=== PATIENT | female | born 1945 | race African-American/Black ===

== ENCOUNTER 2019-12-05 19:08 | Inpatient (IN) ==
[2019-12-05 20:55] LABS: Basophils # 0.1 10*3/uL (0.0-0.2); Basophils % 1.3 % (0.0-0.8); Eosinophils # 0.8 10*3/uL (0.0-0.87); Eosinophils % 8.5 % (0.00-10.9); Hematocrit 39.9 VOL% (35.7-47.0); Hemoglobin 13.1 GM/DL (12.0-16.0); Immature Granulocytes % 0.3 %; Immature Granulocytes Absolute 0.03 #; Lymphocytes % 42.8 % (21.3-54.2); Mean Corpuscular HGB Conc 32.8 GM/DL (32-36); Mean Corpuscular Volume 89.5 FL (87-102); Mean Platelet Volume 12.2 FL (9.6-12.0); Monocytes % 10.4 % (1.7-12.7); Neutrophils % 36.7 % (38.7-73.9); Platelet Count 218 T/CUMM (130-400); Red Blood Count 4.46 MC/CUMM (3.8-5.5); Red Cell Distribution Width 15.1 % (9.3-17.3); White Blood Count 9.4 T/CUMM (4-12)
[2019-12-05 21:03] LABS: Apearance,Urine CLEAR (Clear); Bacteria,Urine Occasional /HPF (Few); Bilirubin,Urine Negative (Negative); Blood, Urine Large mg/dL (Negative); Glucose,Urine (UA) Negative (Negative); Ketones,Urine Negative (Negative); Nitrite,Urine Negative (Negative); Protein,Urine Negative; RBC,Urine 11 /HPF (0-4); Squamous Epithelial Cell,Urine Occasional /HPF (0-10); Urine Color Straw (Yellow); Urine Specific Gravity 1.004 (1.001-1.035); Urine Urobilinogen < 2.0 EU/DL (0.2-1.0); WBC,Urine 7 /HPF (0-6)
[2019-12-05 21:07] LABS: Bilirubin,Total 0.4 MG/DL (0.2-1.0); Osmolality,Calculated 271.8 MOS/KG (273-304); Total Protein 7.9 G/DL (6.4-8.3)
[2019-12-05] MEDS ORDERED: POTASSIUM CHLORIDE 20 MEQ/15 ML UDCUP PO ONE (21:13)
[2019-12-05] MEDS ORDERED: cefTRIAXone 1,000 MG in SODIUM CHLORIDE 0.9% 100 ML IV STA (21:13)
[2019-12-05 21:45] LABS: Eosinophils 7 % (0-10); Lymphocytes 46 % (20-55); Segmented Neutrophils 37 % (50-85); Total Cells Counted 100
[2019-12-05 21:48] LABS: Anisocytosis Slight; Hypochromasia 2+; Platelet Estimate Normal
[2019-12-05 21:50] LABS: Polychromasia Few
[2019-12-05] MEDS ORDERED: cloNIDine 0.1 MG TABLET PO STA (22:56)
[2019-12-05] MEDS ORDERED: ONDANSETRON 4 MG/2 ML VIAL IV PRN (23:13)
[2019-12-05] MEDS ORDERED: amLODIPine 5 MG TABLET PO STA (23:13)
[2019-12-05] MEDS ORDERED: ACETAMINOPHEN 325 MG TABLET PO PRN (23:13)
[2019-12-05] MEDS ORDERED: ASPIRIN EC 325 MG TABLET PO STA (23:16)
[2019-12-06 04:29] LABS: Basophils # 0.1 10*3/uL (0.0-0.2); Basophils % 1.2 % (0.0-0.8); Eosinophils # 0.7 10*3/uL (0.0-0.87); Eosinophils % 9.1 % (0.00-10.9); Hematocrit 36.1 VOL% (35.7-47.0); Hemoglobin 11.9 GM/DL (12.0-16.0); Immature Granulocytes % 0.3 %; Immature Granulocytes Absolute 0.02 #; Lymphocytes # 3.2 10*3/uL (1.4-4.0); Lymphocytes % 41.9 % (21.3-54.2); Mean Corpuscular Volume 87.8 FL (87-102); Mean Platelet Volume 10.9 FL (9.6-12.0); Monocytes % 11.1 % (1.7-12.7); Neutrophils % 36.4 % (38.7-73.9); Platelet Count 221 T/CUMM (130-400); Red Blood Count 4.11 MC/CUMM (3.8-5.5); Red Cell Distribution Width 15.4 % (9.3-17.3); White Blood Count 7.7 T/CUMM (4-12)
[2019-12-06 05:03] LABS: Albumin 3.3 G/DL (3.4-5.0); Bilirubin,Total 0.7 MG/DL (0.2-1.0); Calcium 10.1 MG/DL (8.5-10.1); Osmolality,Calculated 279.3 MOS/KG (273-304); Total Protein 7.2 G/DL (6.4-8.3)
[2019-12-06 05:04] LABS: Atypical Lymphocytes Few; Eosinophils 9 % (0-10); Hypochromasia 1+; Lymphocytes 39 % (20-55); Segmented Neutrophils 41 % (50-85); Total Cells Counted 100
[2019-12-06 05:05] LABS: Microcytosis Slight; Platelet Estimate Normal
[2019-12-06] MEDS ORDERED: predniSONE 5 MG TABLET PO PRN (08:22)
[2019-12-06] MEDS ORDERED: ERGOCALCIFEROL 50,000 UNIT CAPSULE PO SCH (09:00)
[2019-12-06] MEDS ORDERED: LOSARTAN 50 MG TABLET PO SCH (09:00)
[2019-12-06] MEDS ORDERED: cloNIDine 0.1 MG TABLET PO SCH (09:00)
[2019-12-06] MEDS: GABAPENTIN 300 MG CAPSULE PO SCH ×2 (10:05→20:57)
[2019-12-06] MEDS: traMADol 50 MG TABLET PO SCH ×2 (10:05→20:57)
[2019-12-06] MEDS: hydroCHLOROthiazide 25 MG TABLET PO SCH (10:05)
[2019-12-06] MEDS: amLODIPine 5 MG TABLET PO SCH (10:06)
[2019-12-06] MEDS: CITALOPRAM 20 MG TABLET PO SCH (10:06)
[2019-12-06] MEDS: FOLIC ACID 1 MG TABLET PO SCH (10:06)
[2019-12-06] MEDS: LOSARTAN 50 MG TABLET PO SCH (10:06)
[2019-12-06] MEDS: ASPIRIN EC 325 MG TABLET PO SCH (16:56)
[2019-12-07 04:41] LABS: Basophils # 0.1 10*3/uL (0.0-0.2); Basophils % 1.3 % (0.0-0.8); Eosinophils # 0.8 10*3/uL (0.0-0.87); Eosinophils % 9.3 % (0.00-10.9); Hematocrit 34.8 VOL% (35.7-47.0); Hemoglobin 11.6 GM/DL (12.0-16.0); Immature Granulocytes % 0.2 %; Immature Granulocytes Absolute 0.02 #; Lymphocytes # 4.2 10*3/uL (1.4-4.0); Lymphocytes % 46.3 % (21.3-54.2); Mean Corpuscular HGB Conc 33.3 GM/DL (32-36); Mean Platelet Volume 11.1 FL (9.6-12.0); Monocytes % 8.7 % (1.7-12.7); Neutrophils % 34.2 % (38.7-73.9); Platelet Count 204 T/CUMM (130-400); Red Blood Count 3.91 MC/CUMM (3.8-5.5); Red Cell Distribution Width 15.5 % (9.3-17.3); White Blood Count 9.1 T/CUMM (4-12)
[2019-12-07 05:04] LABS: Calcium 9.6 MG/DL (8.5-10.1); Osmolality,Calculated 273.7 MOS/KG (273-304)
[2019-12-07 05:14] LABS: Atypical Lymphocytes Few; Band Neutrophils 1 % (0-10); Eosinophils 13 % (0-10); Hypochromasia 1+; Lymphocytes 46 % (20-55); Microcytosis Slight; Segmented Neutrophils 31 % (50-85); Total Cells Counted 100
[2019-12-07 05:15] LABS: Platelet Estimate Normal
[2019-12-07] MEDS: GABAPENTIN 300 MG CAPSULE PO SCH ×2 (08:38→20:37)
[2019-12-07] MEDS: CITALOPRAM 20 MG TABLET PO SCH (08:38)
[2019-12-07] MEDS: LOSARTAN 50 MG TABLET PO SCH (08:38)
[2019-12-07] MEDS: amLODIPine 5 MG TABLET PO SCH (08:39)
[2019-12-07] MEDS: traMADol 50 MG TABLET PO SCH ×2 (08:39→20:37)
[2019-12-07] MEDS: ASPIRIN EC 325 MG TABLET PO SCH (08:39)
[2019-12-07] MEDS: FOLIC ACID 1 MG TABLET PO SCH (08:39)
[2019-12-07] MEDS: hydroCHLOROthiazide 25 MG TABLET PO SCH (08:40)
[2019-12-08 07:33] VITALS: BP 129/89
[2019-12-08 07:52] LABS: Risk Ratio 3.32; VLDL CHOLESTEROL 28.2 MG/DL
[2019-12-08] MEDS: amLODIPine 5 MG TABLET PO SCH (08:25)
[2019-12-08] MEDS: hydroCHLOROthiazide 25 MG TABLET PO SCH (08:25)
[2019-12-08] MEDS: FOLIC ACID 1 MG TABLET PO SCH (08:25)
[2019-12-08] MEDS: LOSARTAN 50 MG TABLET PO SCH (08:25)
[2019-12-08] MEDS: CITALOPRAM 20 MG TABLET PO SCH (08:26)
[2019-12-08] MEDS: GABAPENTIN 300 MG CAPSULE PO SCH (08:26)
[2019-12-08] MEDS: ASPIRIN EC 325 MG TABLET PO SCH (08:26)
[2019-12-08] MEDS: traMADol 50 MG TABLET PO SCH (08:26)
[2019-12-11] MEDS ORDERED: METHOTREXATE 2.5 MG TABLET PO SCH (09:00)
== END 2019-12-08 09:49 | disposition home health service (06) | DRG 65 ==
LOC: N.EDINP 19:08 → N.ED 19:08 → N.TELES 23:33
PROVIDERS: ADMIT Internal Medicine; ATTEND Internal Medicine

== ENCOUNTER 2020-07-19 13:35 | Inpatient (IN) ==
[2020-07-19] MEDS ORDERED: SODIUM CHLORIDE 0.9% 1,000 ML IV STA (14:04)
[2020-07-19] MEDS ORDERED: ACETAMINOPHEN 500 MG TABLET PO STA (14:04)
[2020-07-19 14:56] LABS: Basophils # 0.1 10*3/uL (0.0-0.2); Basophils % 0.4 % (0.0-0.8); Hematocrit 36.5 VOL% (35.7-47.0); Hemoglobin 12.4 GM/DL (12.0-16.0); Immature Granulocytes Absolute 0.24 #; Lymphocytes # 0.9 10*3/uL (1.4-4.0); Lymphocytes % 7.7 % (21.3-54.2); Mean Platelet Volume 9.4 FL (9.6-12.0); Neutrophils % 83.9 % (38.7-73.9); Platelet Count 179 T/CUMM (130-400); Red Blood Count 4.15 MC/CUMM (3.8-5.5); Red Cell Distribution Width 17.2 % (9.3-17.3); White Blood Count 11.7 T/CUMM (4-12)
[2020-07-19 15:06] LABS: INR 1.1; PT Patient Result 11.9 SECS (9.8-11.9)
[2020-07-19 15:29] LABS: Lymphocytes 3 % (20-55); Segmented Neutrophils 91 % (50-85); Total Cells Counted 100
[2020-07-19 15:30] LABS: Anisocytosis 1+; Hypochromasia Slight; Platelet Estimate Adequate; Polychromasia Few
[2020-07-19 15:31] LABS: Alanine Aminotransferase 28 U/L (13-56); Albumin 3.5 G/DL (3.4-5.0); Alkaline Phosphatase 66 U/L (45-117); Aspartate Amino Transferase 37 U/L (0-37); Blood Urea Nitrogen 11 MG/DL (7-18); Calcium 9.5 MG/DL (8.5-10.1); Carbon Dioxide 30 MMOL/L (21-32); Estimated Glom Filtration Rate 70 ML/MIN; Glucose 97 MG/DL (74-106); Osmolality,Calculated 264.4 MOS/KG (273-304); Potassium 3.3 MMOL/L (3.5-5.1); Sodium 133 MMOL/L (136-145); Total Protein 8.2 G/DL (6.4-8.3)
[2020-07-19 15:34] LABS: Amorphous Crystals,Urine Occasional /HPF (Few); Bilirubin,Urine Negative (Negative); Blood, Urine Large mg/dL (Negative); Glucose,Urine (UA) Negative (Negative); Ketones,Urine Negative (Negative); Nitrite,Urine Negative (Negative); Protein,Urine 100 MG/DL; RBC,Urine 150 /HPF (0-4); Squamous Epithelial Cell,Urine Occasional /HPF (0-10); Urine Appearance CLEAR (Clear); Urine Color Yellow (Yellow); Urine Specific Gravity 1.012 (1.001-1.035)
[2020-07-19] MEDS ORDERED: cefTRIAXone 1,000 MG in SODIUM CHLORIDE 0.9% 100 ML IV STA (15:57)
[2020-07-19] MEDS ORDERED: ENOXAPARIN 120 MG/0.8 ML SYRINGE SUBCUT STA (16:10)
[2020-07-19] MEDS ORDERED: PIPERACILLIN/TAZOBACTAM 3,375 MG in SODIUM CHLORIDE 0.9% 100 ML IV SCH (16:30)
[2020-07-19] MEDS ORDERED: POTASSIUM CHLORIDE 20 MEQ TABLET PO ONE (20:14)
[2020-07-19] MEDS ORDERED: FUROSEMIDE 40 MG/4 ML VIAL IV ONE (20:21)
[2020-07-19] MEDS ORDERED: LORATADINE 10 MG TABLET PO PRN (20:24)
[2020-07-19] MEDS ORDERED: DOCUSATE SODIUM 100 MG CAPSULE PO PRN (20:24)
[2020-07-19] MEDS ORDERED: methylPREDNISolone SOD SUC 40 MG/1 ML VIAL IV SCH (21:00)
[2020-07-19] MEDS ORDERED: KETOROLAC 30 MG/1 ML VIAL IV SCH (21:00)
[2020-07-19] MEDS: MEROPENEM 500 MG in SODIUM CHLORIDE 0.9% 100 ML IV SCH (21:25)
[2020-07-19] MEDS: methylPREDNISolone SOD SUC 40 MG/1 ML VIAL IV SCH (21:27)
[2020-07-19] MEDS: ACETAMINOPHEN 500 MG TABLET PO SCH (21:30)
[2020-07-19] MEDS: SODIUM CHLORIDE 0.9% 1,000 ML IV SCH (21:31)
[2020-07-20] MEDS: VANCOMYCIN INJ 1,500 MG in SODIUM CHLORIDE 0.9% 500 ML IV SCH (00:38)
[2020-07-20] MEDS: ALBUTEROL/IPRATROPIUM 3 ML NEB RESP TX SCH ×4 (00:54→19:50)
[2020-07-20] MEDS: MEROPENEM 500 MG in SODIUM CHLORIDE 0.9% 100 ML IV SCH ×4 (03:51→21:55)
[2020-07-20] MEDS: ACETAMINOPHEN 500 MG TABLET PO SCH ×3 (05:22→21:57)
[2020-07-20] MEDS: methylPREDNISolone SOD SUC 40 MG/1 ML VIAL IV SCH ×3 (05:22→21:52)
[2020-07-20 05:52] LABS: Basophils % 0.1 % (0.0-0.8); Hematocrit 35.3 VOL% (35.7-47.0); Immature Granulocytes % 0.6 %; Immature Granulocytes Absolute 0.07 #; Lymphocytes # 0.4 10*3/uL (1.4-4.0); Lymphocytes % 3.8 % (21.3-54.2); Mean Corpuscular Volume 87.6 FL (87-102); Mean Platelet Volume 9.3 FL (9.6-12.0); Monocytes % 3.6 % (1.7-12.7); Neutrophils % 91.9 % (38.7-73.9); Platelet Count 177 T/CUMM (130-400); Red Blood Count 4.03 MC/CUMM (3.8-5.5); Red Cell Distribution Width 16.9 % (9.3-17.3); White Blood Count 11.3 T/CUMM (4-12)
[2020-07-20 06:13] LABS: Hypochromasia 1+; Lymphocytes 8 % (20-55); Microcytosis 1+; Platelet Estimate Adequate; Segmented Neutrophils 91 % (50-85); Total Cells Counted 100
[2020-07-20 06:20] LABS: Potassium 3.4 MMOL/L (3.5-5.1)
[2020-07-20] MEDS ORDERED: POTASSIUM CHLORIDE 20 MEQ TABLET PO SCH (09:00)
[2020-07-20] MEDS ORDERED: ENOXAPARIN 100 MG/ML SYRINGE SUBCUT SCH (09:00)
[2020-07-20] MEDS: LORATADINE 10 MG TABLET PO SCH (09:22)
[2020-07-20] MEDS: FUROSEMIDE 40 MG/4 ML VIAL IV SCH (09:23)
[2020-07-20] MEDS: SODIUM CHLORIDE 0.9% 1,000 ML IV SCH ×3 (09:24→19:50)
[2020-07-20] MEDS: ASPIRIN EC 81 MG TABLET PO SCH (14:52)
[2020-07-20] MEDS: traMADol 50 MG TABLET PO PRN (14:53)
[2020-07-20] MEDS: SIMVASTATIN 10 MG TABLET PO SCH (17:18)
[2020-07-20] MEDS: CITALOPRAM 20 MG TABLET PO SCH (17:18)
[2020-07-20] MEDS: RIVAROXABAN 15 MG TABLET PO SCH (18:53)
[2020-07-20] MEDS: GABAPENTIN 300 MG CAPSULE PO SCH (21:57)
[2020-07-20] MEDS: POTASSIUM CHLORIDE 20 MEQ TABLET PO SCH (21:59)
[2020-07-21] MEDS: VANCOMYCIN INJ 1,500 MG in SODIUM CHLORIDE 0.9% 500 ML IV SCH (00:41)
[2020-07-21] MEDS: ACETAMINOPHEN 500 MG TABLET PO SCH ×4 (00:43→18:08)
[2020-07-21] MEDS: ALBUTEROL/IPRATROPIUM 3 ML NEB RESP TX SCH ×4 (01:38→19:45)
[2020-07-21] MEDS: MEROPENEM 500 MG in SODIUM CHLORIDE 0.9% 100 ML IV SCH ×4 (03:44→21:07)
[2020-07-21] MEDS: methylPREDNISolone SOD SUC 40 MG/1 ML VIAL IV SCH ×3 (05:15→21:05)
[2020-07-21 05:29] LABS: Basophils % 0.3 % (0.0-0.8); Hematocrit 34.6 VOL% (35.7-47.0); Hemoglobin 11.6 GM/DL (12.0-16.0); Immature Granulocytes % 1.1 %; Immature Granulocytes Absolute 0.12 #; Lymphocytes # 0.4 10*3/uL (1.4-4.0); Lymphocytes % 3.5 % (21.3-54.2); Mean Corpuscular HGB Conc 33.5 GM/DL (32-36); Mean Corpuscular Volume 86.9 FL (87-102); Mean Platelet Volume 9.8 FL (9.6-12.0); Monocytes % 4.3 % (1.7-12.7); Neutrophils % 90.8 % (38.7-73.9); Platelet Count 181 T/CUMM (130-400); Red Blood Count 3.98 MC/CUMM (3.8-5.5); Red Cell Distribution Width 16.5 % (9.3-17.3); White Blood Count 10.8 T/CUMM (4-12)
[2020-07-21 05:41] LABS: Calcium 8.3 MG/DL (8.5-10.1); Osmolality,Calculated 275.7 MOS/KG (273-304); Potassium 3.3 MMOL/L (3.5-5.1)
[2020-07-21 05:46] LABS: Risk Ratio 3.05
[2020-07-21 06:22] LABS: Band Neutrophils 4 % (0-10); Hypochromasia 1+; Lymphocytes 4 % (20-55); Segmented Neutrophils 90 % (50-85); Total Cells Counted 100
[2020-07-21 06:23] LABS: Microcytosis 1+; Platelet Estimate Adequate
[2020-07-21] MEDS: CITALOPRAM 20 MG TABLET PO SCH (09:24)
[2020-07-21] MEDS: GABAPENTIN 300 MG CAPSULE PO SCH ×2 (09:24→21:08)
[2020-07-21] MEDS: traMADol 50 MG TABLET PO PRN (09:25)
[2020-07-21] MEDS: RIVAROXABAN 15 MG TABLET PO SCH ×2 (09:25→16:22)
[2020-07-21] MEDS: POTASSIUM CHLORIDE 20 MEQ TABLET PO SCH ×2 (09:25→21:07)
[2020-07-21] MEDS: LORATADINE 10 MG TABLET PO SCH (09:25)
[2020-07-21] MEDS: ASPIRIN EC 81 MG TABLET PO SCH (09:25)
[2020-07-21] MEDS: FUROSEMIDE 40 MG/4 ML VIAL IV SCH (09:26)
[2020-07-21] MEDS: SODIUM CHLORIDE 0.9% 1,000 ML IV SCH (09:26)
[2020-07-21] MEDS ORDERED: IBUPROFEN 400 MG TABLET PO ONE (15:43)
[2020-07-21] MEDS: SIMVASTATIN 10 MG TABLET PO SCH (16:22)
[2020-07-22] MEDS: SODIUM CHLORIDE 0.9% 1,000 ML IV SCH ×3 (00:47→21:35)
[2020-07-22] MEDS: VANCOMYCIN INJ 1,500 MG in SODIUM CHLORIDE 0.9% 500 ML IV SCH ×3 (00:50→12:48)
[2020-07-22] MEDS: ACETAMINOPHEN 500 MG TABLET PO SCH ×4 (00:51→17:51)
[2020-07-22] MEDS: ALBUTEROL/IPRATROPIUM 3 ML NEB RESP TX SCH ×4 (01:11→20:00)
[2020-07-22] MEDS: MEROPENEM 500 MG in SODIUM CHLORIDE 0.9% 100 ML IV SCH ×4 (03:45→21:31)
[2020-07-22] MEDS: traMADol 50 MG TABLET PO PRN (03:47)
[2020-07-22 03:55] LABS: Basophils % 0.2 % (0.0-0.8); Hematocrit 32.1 VOL% (35.7-47.0); Immature Granulocytes % 1.8 %; Lymphocytes # 0.5 10*3/uL (1.4-4.0); Lymphocytes % 4.1 % (21.3-54.2); Mean Corpuscular HGB Conc 34.3 GM/DL (32-36); Mean Corpuscular Volume 86.5 FL (87-102); Mean Platelet Volume 10.5 FL (9.6-12.0); Monocytes % 5.2 % (1.7-12.7); Neutrophils % 88.7 % (38.7-73.9); Platelet Count 194 T/CUMM (130-400); Red Blood Count 3.71 MC/CUMM (3.8-5.5); Red Cell Distribution Width 16.9 % (9.3-17.3); White Blood Count 11.1 T/CUMM (4-12)
[2020-07-22 04:22] LABS: Calcium 8.1 MG/DL (8.5-10.1); Osmolality,Calculated 277.8 MOS/KG (273-304); Potassium 3.2 MMOL/L (3.5-5.1)
[2020-07-22 04:25] LABS: Band Neutrophils 1 % (0-10); Lymphocytes 4 % (20-55); Platelet Estimate Normal; Segmented Neutrophils 90 % (50-85); Total Cells Counted 100
[2020-07-22] MEDS: methylPREDNISolone SOD SUC 40 MG/1 ML VIAL IV SCH ×3 (04:38→21:29)
[2020-07-22] MEDS: ASPIRIN EC 81 MG TABLET PO SCH (08:53)
[2020-07-22] MEDS: POTASSIUM CHLORIDE 20 MEQ TABLET PO SCH ×2 (08:53→21:33)
[2020-07-22] MEDS: RIVAROXABAN 15 MG TABLET PO SCH ×2 (08:53→17:22)
[2020-07-22] MEDS: LORATADINE 10 MG TABLET PO SCH (08:54)
[2020-07-22] MEDS: CITALOPRAM 20 MG TABLET PO SCH (08:54)
[2020-07-22] MEDS: GABAPENTIN 300 MG CAPSULE PO SCH ×2 (08:54→21:33)
[2020-07-22] MEDS: FUROSEMIDE 40 MG/4 ML VIAL IV SCH (08:54)
[2020-07-22] MEDS ORDERED: POTASSIUM CHLORIDE 20 MEQ TABLET PO ONE (11:13)
[2020-07-22] MEDS: SIMVASTATIN 10 MG TABLET PO SCH (17:22)
[2020-07-23] MEDS: VANCOMYCIN INJ 1,500 MG in SODIUM CHLORIDE 0.9% 500 ML IV SCH ×2 (00:44→11:55)
[2020-07-23] MEDS: ACETAMINOPHEN 500 MG TABLET PO SCH ×4 (00:46→17:44)
[2020-07-23] MEDS: ALBUTEROL/IPRATROPIUM 3 ML NEB RESP TX SCH ×4 (00:56→20:05)
[2020-07-23] MEDS: MEROPENEM 500 MG in SODIUM CHLORIDE 0.9% 100 ML IV SCH ×4 (03:55→21:55)
[2020-07-23] MEDS: methylPREDNISolone SOD SUC 40 MG/1 ML VIAL IV SCH ×3 (05:46→21:56)
[2020-07-23] MEDS: SODIUM CHLORIDE 0.9% 1,000 ML IV SCH ×3 (07:11→15:43)
[2020-07-23] MEDS: ASPIRIN EC 81 MG TABLET PO SCH (08:47)
[2020-07-23] MEDS: LORATADINE 10 MG TABLET PO SCH (08:47)
[2020-07-23] MEDS: amLODIPine 5 MG TABLET PO SCH (08:47)
[2020-07-23] MEDS: GABAPENTIN 300 MG CAPSULE PO SCH ×2 (08:47→21:56)
[2020-07-23] MEDS: CITALOPRAM 20 MG TABLET PO SCH (08:47)
[2020-07-23] MEDS: POTASSIUM CHLORIDE 20 MEQ TABLET PO SCH ×2 (08:47→21:55)
[2020-07-23] MEDS: RIVAROXABAN 15 MG TABLET PO SCH ×2 (08:47→16:28)
[2020-07-23] MEDS: FUROSEMIDE 40 MG/4 ML VIAL IV SCH (08:48)
[2020-07-23] MEDS: SIMVASTATIN 10 MG TABLET PO SCH (16:28)
[2020-07-24] MEDS: VANCOMYCIN INJ 1,500 MG in SODIUM CHLORIDE 0.9% 500 ML IV SCH ×3 (00:23→23:55)
[2020-07-24] MEDS: ACETAMINOPHEN 500 MG TABLET PO SCH ×5 (00:23→23:54)
[2020-07-24] MEDS: ALBUTEROL/IPRATROPIUM 3 ML NEB RESP TX SCH ×4 (02:06→19:25)
[2020-07-24] MEDS: MEROPENEM 500 MG in SODIUM CHLORIDE 0.9% 100 ML IV SCH ×4 (03:28→21:34)
[2020-07-24] MEDS: SODIUM CHLORIDE 0.9% 1,000 ML IV SCH ×2 (03:31→16:35)
[2020-07-24] MEDS: methylPREDNISolone SOD SUC 40 MG/1 ML VIAL IV SCH ×3 (06:33→21:39)
[2020-07-24] MEDS: LORATADINE 10 MG TABLET PO SCH (08:58)
[2020-07-24] MEDS: POTASSIUM CHLORIDE 20 MEQ TABLET PO SCH ×2 (08:59→21:34)
[2020-07-24] MEDS: amLODIPine 5 MG TABLET PO SCH (08:59)
[2020-07-24] MEDS: CITALOPRAM 20 MG TABLET PO SCH (08:59)
[2020-07-24] MEDS: GABAPENTIN 300 MG CAPSULE PO SCH ×2 (08:59→21:34)
[2020-07-24] MEDS: FUROSEMIDE 40 MG/4 ML VIAL IV SCH (08:59)
[2020-07-24] MEDS: ASPIRIN EC 81 MG TABLET PO SCH (08:59)
[2020-07-24] MEDS: RIVAROXABAN 15 MG TABLET PO SCH ×2 (08:59→16:27)
[2020-07-24] MEDS: SIMVASTATIN 10 MG TABLET PO SCH (16:27)
[2020-07-25] MEDS: ALBUTEROL/IPRATROPIUM 3 ML NEB RESP TX SCH ×4 (00:04→20:20)
[2020-07-25] MEDS: MEROPENEM 500 MG in SODIUM CHLORIDE 0.9% 100 ML IV SCH ×4 (02:44→20:57)
[2020-07-25] MEDS: methylPREDNISolone SOD SUC 40 MG/1 ML VIAL IV SCH ×3 (05:13→20:50)
[2020-07-25] MEDS: ACETAMINOPHEN 500 MG TABLET PO SCH ×3 (05:40→17:57)
[2020-07-25 07:07] LABS: Basophils % 0.2 % (0.0-0.8); Eosinophils % 0.1 % (0.00-10.9); Hematocrit 34.6 VOL% (35.7-47.0); Hemoglobin 11.9 GM/DL (12.0-16.0); Immature Granulocytes % 12.5 %; Immature Granulocytes Absolute 2.16 #; Lymphocytes # 2.7 10*3/uL (1.4-4.0); Lymphocytes % 15.5 % (21.3-54.2); Mean Corpuscular HGB Conc 34.4 GM/DL (32-36); Mean Corpuscular Volume 85.9 FL (87-102); Mean Platelet Volume 11.5 FL (9.6-12.0); Monocytes % 11.1 % (1.7-12.7); NRBC # 0.32 10*3/uL; Neutrophils % 60.6 % (38.7-73.9); Platelet Count 355 T/CUMM (130-400); Red Blood Count 4.03 MC/CUMM (3.8-5.5); Red Cell Distribution Width 17.6 % (9.3-17.3); White Blood Count 17.3 T/CUMM (4-12)
[2020-07-25 07:21] LABS: Calcium 8.8 MG/DL (8.5-10.1); Hypochromasia 1+; Microcytosis 1+; Ovalocytes Slight; Platelet Estimate Adequate; Potassium 4.6 MMOL/L (3.5-5.1)
[2020-07-25] MEDS: FUROSEMIDE 40 MG/4 ML VIAL IV SCH (08:53)
[2020-07-25] MEDS: GABAPENTIN 300 MG CAPSULE PO SCH ×2 (08:57→20:51)
[2020-07-25] MEDS: amLODIPine 5 MG TABLET PO SCH (08:57)
[2020-07-25] MEDS: POTASSIUM CHLORIDE 20 MEQ TABLET PO SCH ×2 (08:58→20:51)
[2020-07-25] MEDS: ASPIRIN EC 81 MG TABLET PO SCH (08:58)
[2020-07-25] MEDS: LORATADINE 10 MG TABLET PO SCH (09:00)
[2020-07-25] MEDS: CITALOPRAM 20 MG TABLET PO SCH (09:06)
[2020-07-25] MEDS: RIVAROXABAN 15 MG TABLET PO SCH ×2 (09:06→17:10)
[2020-07-25] MEDS: traMADol 50 MG TABLET PO PRN (11:31)
[2020-07-25] MEDS: VANCOMYCIN INJ 1,500 MG in SODIUM CHLORIDE 0.9% 500 ML IV SCH (11:33)
[2020-07-25] MEDS: SIMVASTATIN 10 MG TABLET PO SCH (17:10)
[2020-07-26] MEDS: VANCOMYCIN INJ 1,500 MG in SODIUM CHLORIDE 0.9% 500 ML IV SCH ×2 (00:01→12:59)
[2020-07-26] MEDS: ALBUTEROL/IPRATROPIUM 3 ML NEB RESP TX SCH ×4 (01:31→19:44)
[2020-07-26] MEDS: MEROPENEM 500 MG in SODIUM CHLORIDE 0.9% 100 ML IV SCH ×4 (03:03→20:46)
[2020-07-26] MEDS: methylPREDNISolone SOD SUC 40 MG/1 ML VIAL IV SCH (04:35)
[2020-07-26] MEDS: ACETAMINOPHEN 500 MG TABLET PO SCH ×4 (06:01→17:46)
[2020-07-26] MEDS: CITALOPRAM 20 MG TABLET PO SCH (08:50)
[2020-07-26] MEDS: POTASSIUM CHLORIDE 20 MEQ TABLET PO SCH ×2 (08:50→20:46)
[2020-07-26] MEDS: ASPIRIN EC 81 MG TABLET PO SCH (08:50)
[2020-07-26] MEDS: GABAPENTIN 300 MG CAPSULE PO SCH ×2 (08:50→20:45)
[2020-07-26] MEDS: RIVAROXABAN 15 MG TABLET PO SCH ×2 (08:56→17:43)
[2020-07-26] MEDS: amLODIPine 5 MG TABLET PO SCH (08:56)
[2020-07-26] MEDS: LORATADINE 10 MG TABLET PO SCH (09:14)
[2020-07-26] MEDS: FUROSEMIDE 40 MG TABLET PO SCH (09:14)
[2020-07-26 09:45] LABS: Vitamin B12 435 PG/ML (211-911)
[2020-07-26] MEDS: SIMVASTATIN 10 MG TABLET PO SCH (17:43)
[2020-07-27] MEDS: ACETAMINOPHEN 500 MG TABLET PO SCH ×4 (00:13→17:48)
[2020-07-27] MEDS: VANCOMYCIN INJ 1,500 MG in SODIUM CHLORIDE 0.9% 500 ML IV SCH ×2 (00:14→12:21)
[2020-07-27] MEDS: ALBUTEROL/IPRATROPIUM 3 ML NEB RESP TX SCH ×4 (02:04→19:54)
[2020-07-27] MEDS: MEROPENEM 500 MG in SODIUM CHLORIDE 0.9% 100 ML IV SCH ×4 (02:41→20:45)
[2020-07-27] MEDS: FUROSEMIDE 40 MG TABLET PO SCH (09:23)
[2020-07-27] MEDS: RIVAROXABAN 15 MG TABLET PO SCH ×2 (09:24→17:49)
[2020-07-27] MEDS: amLODIPine 5 MG TABLET PO SCH (09:24)
[2020-07-27] MEDS: LORATADINE 10 MG TABLET PO SCH (09:24)
[2020-07-27] MEDS: CITALOPRAM 20 MG TABLET PO SCH (09:24)
[2020-07-27] MEDS: POTASSIUM CHLORIDE 20 MEQ TABLET PO SCH ×2 (09:24→20:45)
[2020-07-27] MEDS: ASPIRIN EC 81 MG TABLET PO SCH (09:24)
[2020-07-27] MEDS: GABAPENTIN 300 MG CAPSULE PO SCH ×2 (09:32→20:44)
[2020-07-27] MEDS: SIMVASTATIN 10 MG TABLET PO SCH (17:49)
[2020-07-28] MEDS: VANCOMYCIN INJ 1,500 MG in SODIUM CHLORIDE 0.9% 500 ML IV SCH ×2 (00:30→11:56)
[2020-07-28] MEDS: ALBUTEROL/IPRATROPIUM 3 ML NEB RESP TX SCH ×4 (01:05→19:43)
[2020-07-28] MEDS: ACETAMINOPHEN 500 MG TABLET PO SCH ×4 (02:38→17:29)
[2020-07-28] MEDS: SODIUM CHLORIDE 0.9% 1,000 ML IV SCH (02:42)
[2020-07-28] MEDS: MEROPENEM 500 MG in SODIUM CHLORIDE 0.9% 100 ML IV SCH ×4 (03:15→21:16)
[2020-07-28] MEDS: CITALOPRAM 20 MG TABLET PO SCH (08:31)
[2020-07-28] MEDS: GABAPENTIN 300 MG CAPSULE PO SCH ×2 (08:31→21:16)
[2020-07-28] MEDS: amLODIPine 5 MG TABLET PO SCH (08:31)
[2020-07-28] MEDS: FUROSEMIDE 40 MG TABLET PO SCH (08:32)
[2020-07-28] MEDS: RIVAROXABAN 15 MG TABLET PO SCH ×2 (08:32→17:07)
[2020-07-28] MEDS: LORATADINE 10 MG TABLET PO SCH (08:32)
[2020-07-28] MEDS: POTASSIUM CHLORIDE 20 MEQ TABLET PO SCH ×2 (08:32→21:16)
[2020-07-28] MEDS: ASPIRIN EC 81 MG TABLET PO SCH (08:32)
[2020-07-28] MEDS: SIMVASTATIN 10 MG TABLET PO SCH (17:07)
[2020-07-29] MEDS: ACETAMINOPHEN 500 MG TABLET PO SCH ×4 (00:26→18:05)
[2020-07-29] MEDS: ALBUTEROL/IPRATROPIUM 3 ML NEB RESP TX SCH ×4 (01:03→19:32)
[2020-07-29] MEDS: MEROPENEM 500 MG in SODIUM CHLORIDE 0.9% 100 ML IV SCH ×4 (03:35→21:07)
[2020-07-29 05:27] LABS: Calcium 8.5 MG/DL (8.5-10.1); Osmolality,Calculated 279.3 MOS/KG (273-304)
[2020-07-29 07:41] LABS: Basophils # 0.1 10*3/uL (0.0-0.2); Basophils % 0.6 % (0.0-0.8); Eosinophils # 0.5 10*3/uL (0.0-0.87); Eosinophils % 3.8 % (0.00-10.9); Immature Granulocytes % 10.2 %; Immature Granulocytes Absolute 1.22 #; Lymphocytes % 24.8 % (21.3-54.2); Mean Corpuscular HGB Conc 33.3 GM/DL (32-36); Mean Corpuscular Volume 88.2 FL (87-102); Mean Platelet Volume 10.4 FL (9.6-12.0); Monocytes % 12.4 % (1.7-12.7); Neutrophils % 48.2 % (38.7-73.9); Platelet Count 371 T/CUMM (130-400); Red Blood Count 3.74 MC/CUMM (3.8-5.5); Red Cell Distribution Width 19.1 % (9.3-17.3)
[2020-07-29] MEDS: CITALOPRAM 20 MG TABLET PO SCH (08:31)
[2020-07-29] MEDS: LORATADINE 10 MG TABLET PO SCH (08:31)
[2020-07-29] MEDS: FUROSEMIDE 40 MG TABLET PO SCH (08:31)
[2020-07-29] MEDS: POTASSIUM CHLORIDE 20 MEQ TABLET PO SCH ×2 (08:31→21:07)
[2020-07-29] MEDS: ASPIRIN EC 81 MG TABLET PO SCH (08:31)
[2020-07-29] MEDS: GABAPENTIN 300 MG CAPSULE PO SCH ×2 (08:31→21:07)
[2020-07-29] MEDS: RIVAROXABAN 15 MG TABLET PO SCH ×2 (08:31→16:46)
[2020-07-29] MEDS: amLODIPine 5 MG TABLET PO SCH (08:31)
[2020-07-29 11:09] LABS: Band Neutrophils 2 % (0-10); Eosinophils 3 % (0-10); Lymphocytes 22 % (20-55); Nucleated Red Blood Cells 2 (0-5); Segmented Neutrophils 70 % (50-85); Total Cells Counted 100
[2020-07-29 11:10] LABS: Platelet Estimate Normal; Polychromasia Slight
[2020-07-29] MEDS: VANCOMYCIN INJ 1,500 MG in SODIUM CHLORIDE 0.9% 500 ML IV SCH (12:53)
[2020-07-29] MEDS: SIMVASTATIN 10 MG TABLET PO SCH (16:46)
[2020-07-30] MEDS: ACETAMINOPHEN 500 MG TABLET PO SCH ×3 (00:19→14:18)
[2020-07-30] MEDS: ALBUTEROL/IPRATROPIUM 3 ML NEB RESP TX SCH ×2 (01:20→07:40)
[2020-07-30] MEDS: MEROPENEM 500 MG in SODIUM CHLORIDE 0.9% 100 ML IV SCH ×2 (03:05→08:56)
[2020-07-30 05:55] LABS: Basophils # 0.1 10*3/uL (0.0-0.2); Basophils % 0.6 % (0.0-0.8); Eosinophils # 0.4 10*3/uL (0.0-0.87); Eosinophils % 3.4 % (0.00-10.9); Hematocrit 31.9 VOL% (35.7-47.0); Hemoglobin 10.4 GM/DL (12.0-16.0); Immature Granulocytes % 6.1 %; Immature Granulocytes Absolute 0.68 #; Lymphocytes % 26.5 % (21.3-54.2); Mean Corpuscular HGB Conc 32.6 GM/DL (32-36); Mean Corpuscular Volume 89.9 FL (87-102); Mean Platelet Volume 10.7 FL (9.6-12.0); Monocytes % 13.1 % (1.7-12.7); NRBC # 0.04 10*3/uL; Neutrophils % 50.3 % (38.7-73.9); Platelet Count 345 T/CUMM (130-400); Red Blood Count 3.55 MC/CUMM (3.8-5.5); Red Cell Distribution Width 18.7 % (9.3-17.3); White Blood Count 11.2 T/CUMM (4-12)
[2020-07-30 06:17] LABS: Eosinophils 2 % (0-10); Hypochromasia 1+; Lymphocytes 29 % (20-55); Microcytosis 1+; Platelet Estimate Adequate; Segmented Neutrophils 55 % (50-85); Total Cells Counted 100
[2020-07-30 06:32] LABS: Osmolality,Calculated 277.3 MOS/KG (273-304); Potassium 4.2 MMOL/L (3.5-5.1)
[2020-07-30] MEDS: FUROSEMIDE 40 MG TABLET PO SCH (08:57)
[2020-07-30] MEDS: POTASSIUM CHLORIDE 20 MEQ TABLET PO SCH (08:57)
[2020-07-30] MEDS: RIVAROXABAN 15 MG TABLET PO SCH (08:57)
[2020-07-30] MEDS: LORATADINE 10 MG TABLET PO SCH (08:58)
[2020-07-30] MEDS: CITALOPRAM 20 MG TABLET PO SCH (08:58)
[2020-07-30] MEDS: ASPIRIN EC 81 MG TABLET PO SCH (08:58)
[2020-07-30] MEDS: amLODIPine 5 MG TABLET PO SCH (08:58)
[2020-07-30] MEDS: GABAPENTIN 300 MG CAPSULE PO SCH (08:58)
[2020-07-30 11:42] VITALS: BP 130/91
[2020-07-30] MEDS: VANCOMYCIN INJ 1,500 MG in SODIUM CHLORIDE 0.9% 500 ML IV SCH (12:00)
== END 2020-07-30 15:14 | disposition swing bed (61) | DRG 175 ==
LOC: N.ED 13:35 → N.EDINP 16:23 → N.5E 18:05
PROVIDERS: ADMIT Internal Medicine; ATTEND Internal Medicine

== ENCOUNTER 2021-08-27 10:51 | Inpatient (IN) ==
[2021-08-27] MEDS ORDERED: ACETAMINOPHEN 325 MG TABLET PO PRN (10:54)
[2021-08-27] MEDS ORDERED: ONDANSETRON 4 MG/2 ML VIAL IV PRN (10:54)
[2021-08-27] MEDS ORDERED: ENOXAPARIN 40 MG/0.4 ML SYRINGE SUBCUT SCH (14:00)
[2021-08-27] MEDS ORDERED: traMADol 50 MG TABLET PO PRN (16:51)
[2021-08-27] MEDS ORDERED: DOCUSATE SODIUM 100 MG CAPSULE PO PRN (16:55)
[2021-08-27] MEDS: SIMVASTATIN 10 MG TABLET PO SCH (17:34)
[2021-08-27] MEDS: PIPERACILLIN/TAZOBACTAM 3,375 MG in SODIUM CHLORIDE 0.9% 100 ML IV SCH (17:36)
[2021-08-27] MEDS: SODIUM CHLORIDE 0.9% 1,000 ML IV SCH (17:40)
[2021-08-27] MEDS: LATANOPROST 0.005% OPH SOLN 2.5 ML BOTTLE BOTH EYES SCH (20:55)
[2021-08-27] MEDS: DOCUSATE SODIUM 100 MG CAPSULE PO SCH (20:56)
[2021-08-27] MEDS: GABAPENTIN 100 MG CAPSULE PO SCH (20:56)
[2021-08-27] MEDS: POTASSIUM CHLORIDE 20 MEQ TABLET PO SCH (20:56)
[2021-08-27] MEDS: predniSONE 5 MG TABLET PO SCH (20:56)
[2021-08-28] MEDS: PIPERACILLIN/TAZOBACTAM 3,375 MG in SODIUM CHLORIDE 0.9% 100 ML IV SCH ×4 (00:40→23:45)
[2021-08-28 06:05] LABS: Basophils # 0.1 10*3/uL (0.0-0.2); Basophils % 0.4 % (0.0-0.8); Eosinophils # 0.1 10*3/uL (0.0-0.87); Eosinophils % 0.5 % (0.00-10.9); Hematocrit 31.1 VOL% (35.7-47.0); Hemoglobin 10.3 GM/DL (12.0-16.0); Immature Granulocytes Absolute 0.12 #; Lymphocytes # 1.3 10*3/uL (1.4-4.0); Lymphocytes % 10.8 % (21.3-54.2); Mean Corpuscular HGB Conc 33.1 GM/DL (32-36); Mean Corpuscular Volume 88.1 FL (87-102); Mean Platelet Volume 9.9 FL (9.6-12.0); Monocytes % 12.1 % (1.7-12.7); Neutrophils % 75.2 % (38.7-73.9); Platelet Count 242 T/CUMM (130-400); Red Blood Count 3.53 MC/CUMM (3.8-5.5); Red Cell Distribution Width 16.5 % (9.3-17.3); White Blood Count 12.1 T/CUMM (4-12)
[2021-08-28 06:28] LABS: Hypochromia 1+; Lymphocytes 11 % (20-55); Microcytosis 1+; Platelet Estimate Adequate; Segmented Neutrophils 83 % (50-85); Total Cells Counted 100
[2021-08-28 06:32] LABS: Albumin 2.9 G/DL (3.4-5.0); Bilirubin,Total 2.3 MG/DL (0.20-1.00); Calcium 9.6 MG/DL (8.5-10.1); Osmolality,Calculated 278.4 MOS/KG (273-304); Potassium 3.2 MMOL/L (3.5-5.1); Total Protein 6.9 G/DL (6.4-8.2)
[2021-08-28] MEDS ORDERED: NON-FORMULARY MEDICATION (Omeprazole 20 mg capsule,delayed release(DR/EC)) PO SCH (07:30)
[2021-08-28] MEDS: RIVAROXABAN 20 MG TABLET PO SCH (08:07)
[2021-08-28] MEDS: DOCUSATE SODIUM 100 MG CAPSULE PO SCH ×2 (09:36→21:12)
[2021-08-28] MEDS: FOLIC ACID 1 MG TABLET PO SCH (09:36)
[2021-08-28] MEDS: PANTOPRAZOLE 40 MG TABLET PO SCH (09:36)
[2021-08-28] MEDS: FUROSEMIDE 40 MG TABLET PO SCH (09:36)
[2021-08-28] MEDS: LOSARTAN 50 MG TABLET PO SCH (09:37)
[2021-08-28] MEDS: GABAPENTIN 100 MG CAPSULE PO SCH ×2 (09:37→21:12)
[2021-08-28] MEDS: POTASSIUM CHLORIDE 20 MEQ TABLET PO SCH ×2 (09:37→21:12)
[2021-08-28] MEDS: CITALOPRAM 20 MG TABLET PO SCH (09:37)
[2021-08-28] MEDS: predniSONE 5 MG TABLET PO SCH ×2 (09:37→21:12)
[2021-08-28] MEDS: ASPIRIN EC 81 MG TABLET PO SCH (09:38)
[2021-08-28] MEDS: amLODIPine 5 MG TABLET PO SCH (09:38)
[2021-08-28] MEDS: SODIUM CHLORIDE 0.9% 1,000 ML IV SCH (14:42)
[2021-08-28] MEDS: SIMVASTATIN 10 MG TABLET PO SCH (17:10)
[2021-08-28] MEDS: LATANOPROST 0.005% OPH SOLN 2.5 ML BOTTLE BOTH EYES SCH (21:14)
[2021-08-29] MEDS: SODIUM CHLORIDE 0.9% 1,000 ML IV SCH ×2 (06:05→23:42)
[2021-08-29] MEDS: PIPERACILLIN/TAZOBACTAM 3,375 MG in SODIUM CHLORIDE 0.9% 100 ML IV SCH ×3 (06:05→23:46)
[2021-08-29 06:42] LABS: Basophils # 0.1 10*3/uL (0.0-0.2); Basophils % 0.9 % (0.0-0.8); Eosinophils # 0.2 10*3/uL (0.0-0.87); Eosinophils % 2.3 % (0.00-10.9); Hematocrit 29.9 VOL% (35.7-47.0); Immature Granulocytes % 1.6 %; Immature Granulocytes Absolute 0.14 #; Lymphocytes # 1.2 10*3/uL (1.4-4.0); Lymphocytes % 13.9 % (21.3-54.2); Mean Corpuscular HGB Conc 33.4 GM/DL (32-36); Mean Corpuscular Volume 87.4 FL (87-102); Mean Platelet Volume 10.6 FL (9.6-12.0); Monocytes % 14.6 % (1.7-12.7); Neutrophils % 66.7 % (38.7-73.9); Platelet Count 258 T/CUMM (130-400); Red Blood Count 3.42 MC/CUMM (3.8-5.5); Red Cell Distribution Width 16.5 % (9.3-17.3); White Blood Count 8.8 T/CUMM (4-12)
[2021-08-29] MEDS: FUROSEMIDE 40 MG TABLET PO SCH (08:48)
[2021-08-29] MEDS: amLODIPine 5 MG TABLET PO SCH (08:48)
[2021-08-29] MEDS: predniSONE 5 MG TABLET PO SCH ×2 (08:49→23:40)
[2021-08-29] MEDS: FOLIC ACID 1 MG TABLET PO SCH (08:49)
[2021-08-29] MEDS: LOSARTAN 50 MG TABLET PO SCH (08:49)
[2021-08-29] MEDS: DOCUSATE SODIUM 100 MG CAPSULE PO SCH ×2 (08:50→23:41)
[2021-08-29] MEDS: CITALOPRAM 20 MG TABLET PO SCH (08:50)
[2021-08-29] MEDS: GABAPENTIN 100 MG CAPSULE PO SCH ×2 (08:50→23:37)
[2021-08-29] MEDS: POTASSIUM CHLORIDE 20 MEQ TABLET PO SCH ×3 (08:50→23:40)
[2021-08-29] MEDS: RIVAROXABAN 20 MG TABLET PO SCH (08:50)
[2021-08-29] MEDS: PANTOPRAZOLE 40 MG TABLET PO SCH (08:51)
[2021-08-29] MEDS: ASPIRIN EC 81 MG TABLET PO SCH (08:51)
[2021-08-29 09:42] LABS: Calcium 9.6 MG/DL (8.5-10.1); Osmolality,Calculated 279.3 MOS/KG (273-304); Potassium 3.2 MMOL/L (3.5-5.1)
[2021-08-29] MEDS: POTASSIUM CHLORIDE 20 MEQ TABLET PO PRN ×4 (11:15→17:33)
[2021-08-29] MEDS: SIMVASTATIN 10 MG TABLET PO SCH (17:33)
[2021-08-29] MEDS: LATANOPROST 0.005% OPH SOLN 2.5 ML BOTTLE BOTH EYES SCH (23:44)
[2021-08-30 04:25] LABS: Basophils # 0.2 10*3/uL (0.0-0.2); Eosinophils # 0.4 10*3/uL (0.0-0.87); Hematocrit 32.9 VOL% (35.7-47.0); Hemoglobin 10.6 GM/DL (12.0-16.0); Immature Granulocytes % 3.8 %; Immature Granulocytes Absolute 0.31 #; Lymphocytes # 1.5 10*3/uL (1.4-4.0); Lymphocytes % 18.3 % (21.3-54.2); Mean Corpuscular HGB Conc 32.2 GM/DL (32-36); Mean Corpuscular Volume 90.6 FL (87-102); Mean Platelet Volume 10.5 FL (9.6-12.0); Monocytes % 17.4 % (1.7-12.7); NRBC # 0.02 10*3/uL; Neutrophils % 53.5 % (38.7-73.9); Platelet Count 290 T/CUMM (130-400); Red Blood Count 3.63 MC/CUMM (3.8-5.5); Red Cell Distribution Width 16.7 % (9.3-17.3); White Blood Count 8.2 T/CUMM (4-12)
[2021-08-30 04:46] LABS: Calcium 9.9 MG/DL (8.5-10.1); Osmolality,Calculated 279.3 MOS/KG (273-304); Potassium 4.1 MMOL/L (3.5-5.1)
[2021-08-30 05:09] LABS: Eosinophils 5 % (0-10); Lymphocytes 19 % (20-55); Platelet Estimate Normal; Segmented Neutrophils 63 % (50-85); Total Cells Counted 100
[2021-08-30 07:52] VITALS: BP 122/70
[2021-08-30] MEDS: GABAPENTIN 100 MG CAPSULE PO SCH (09:13)
[2021-08-30] MEDS: ASPIRIN EC 81 MG TABLET PO SCH (09:13)
[2021-08-30] MEDS: FOLIC ACID 1 MG TABLET PO SCH (09:13)
[2021-08-30] MEDS: DOCUSATE SODIUM 100 MG CAPSULE PO SCH (09:13)
[2021-08-30] MEDS: FUROSEMIDE 40 MG TABLET PO SCH (09:13)
[2021-08-30] MEDS: PANTOPRAZOLE 40 MG TABLET PO SCH (09:14)
[2021-08-30] MEDS: RIVAROXABAN 20 MG TABLET PO SCH (09:14)
[2021-08-30] MEDS: predniSONE 5 MG TABLET PO SCH (09:14)
[2021-08-30] MEDS: amLODIPine 5 MG TABLET PO SCH (09:14)
[2021-08-30] MEDS: POTASSIUM CHLORIDE 20 MEQ TABLET PO SCH (09:14)
[2021-08-30] MEDS: LOSARTAN 50 MG TABLET PO SCH (09:14)
[2021-08-30] MEDS: PIPERACILLIN/TAZOBACTAM 3,375 MG in SODIUM CHLORIDE 0.9% 100 ML IV SCH (09:14)
[2021-08-30] MEDS: CITALOPRAM 20 MG TABLET PO SCH (09:14)
[2021-08-30] MEDS: SODIUM CHLORIDE 0.9% 1,000 ML IV SCH (10:20)
[2021-09-03] MEDS ORDERED: ERGOCALCIFEROL 50,000 UNIT CAPSULE PO SCH (09:00)
== END 2021-08-30 10:19 | disposition home or self-care (01) | DRG 690 ==
LOC: N.3E 13:01
PROVIDERS: ADMIT Internal Medicine; ATTEND Internal Medicine